=== PATIENT | female | born 1975 | race Caucasian/White ===

== ENCOUNTER 2019-06-13 14:34 | Emergency (ER) | payer OTHER ==
--- NOTE | 2019-06-13 14:47 | ED Physician Documentation ---
PD HPI CHEST PAIN - Stated complaint Stated Complaint: TIGHTNESS IN CHEST - Chief complaint Chief Complaint: Cardiac - History obtained from History obtained from: Patient - History of Present Illness Timing - onset: How many weeks ago (2-3) Timing - onset during: Light activity, Exertion Timing - duration: Hours (it will hurt for periods during the day and then improve. Noted more with movement and upper body use (lifting)) Timing - details: Gradual onset, Intermittant Quality: Aching, Pain Location: Substernal, Right chest Radiation: No: Neck, Back Improved by: Rest Worsened by: Exertion, Inspiration, Movement. No: Palpation Associated symptoms: Shortness of air. No: Nausea, Vomiting, Feeling faint / dizzy, Cough Similar symptoms before: Has not had sx before Recently seen: Not recently seen, Other (had moved from [place] about a month ago, so was doing lifting/packing, but also then drove from [place] to here.) Review of Systems Constitutional: denies: Fever, Chills, Myalgias Nose: denies: Rhinorrhea / runny nose, Congestion Throat: denies: Sore throat Cardiac: reports: Chest pain / pressure. denies: Palpitations, Pedal edema, Calf pain Respiratory: denies: Dyspnea, Cough, Wheezing GI: denies: Abdominal Pain, Nausea, Vomiting, Diarrhea Skin: denies: Rash, Lesions PD PAST MEDICAL HISTORY - Past Medical History Cardiovascular: None Respiratory: None - Present Medications Home Medications: Ambulatory Orders Medication Instructions Recorded Confirmed Ibuprofen [Motrin] 600 mg PO TID PRN #25 tab 06/13/19 dexAMETHasone [Decadron] 4 mg PO DAILY #5 tablet 06/13/19 - Allergies Allergies/Adverse Reactions: Allergies Allergy/AdvReac Type Severity Reaction Status Date / Time erythromycin base Allergy Rash Verified 06/13/19 14:45 Penicillins Allergy Rash Verified 06/13/19 14:45 - Family History Family history: reports: CAD PD ED PE NORMAL - Vitals Vital signs reviewed: Yes - General General: Alert and oriented X 3, No acute distress, Well developed/nourished - HEENT HEENT: Pharynx benign - Neck Neck: Supple, no meningeal sign, No adenopathy - Cardiac Cardiac: RRR, No murmur - Respiratory Respiratory: Clear bilaterally, Other (some chest wall tenderness right parasternal area without crepitance, rash, nor redness. ) - Abdomen Abdomen: Soft, Non tender - Derm Derm: Normal color, Warm and dry - Extremities Extremities: Normal ROM s pain, No edema, No calf tenderness / cord - Neuro Neuro: Alert and oriented X 3, No motor deficit, Normal speech Results - Vitals Vitals: Vital Signs - 24 hr 06/13/19 06/13/19 14:43 16:23 Temperature 36.7 C 36.6 C Heart Rate 73 66 Respiratory 18 18 Rate Blood Pressure 120/67 106/73 O2 Saturation 98 98 Oxygen O2 Source Room air - EKG (time done) 14:49 Rate: Rate (enter#) (68) Rhythm: NSR [place]: Normal Intervals: Normal CA QRS: Normal Ischemia: Normal ST segments. No: ST elevation c/w ischemia, ST depression Compare to prior EKG: Old EKG unavailable - Labs Labs: Laboratory Tests 06/13/19 06/13/19 06/13/19 15:15 15:15 15:15 WBC 6.5 RBC 4.49 Hgb 13.6 Hct 41.9 MCV 93.3 MCH 30.3 MCHC 32.5 RDW 12.6 Plt Count 261 MPV 9.9 Neut # (Auto) 3.8 Lymph # (Auto) 2.0 Rich # (Auto) 0.4 Eos # (Auto) 0.3 Baso # (Auto) 0.0 Absolute Nucleated RBC 0.00 Nucleated RBC % 0.0 D-Dimer Sodium 141 Potassium 4.2 Chloride 108 Carbon Dioxide 26 Anion Gap 7.0 BUN 15 Creatinine 0.8 Estimated GFR (MDRD) 79 L Glucose 109 H Calcium 9.3 Total Bilirubin < 0.2 L AST 13 ALT 16 Alkaline Phosphatase 56 Troponin I High Sens < 2.3 L C-Reactive Protein < 1.0 B-Natriuretic Peptide Total Protein 7.1 Albumin 3.9 Globulin 3.2 Albumin/Globulin Ratio 1.2 Lipase 28 06/13/19 06/13/19 15:15 15:15 WBC RBC Hgb Hct MCV MCH MCHC RDW Plt Count MPV Neut # (Auto) Lymph # (Auto) Rich # (Auto) Eos # (Auto) Baso # (Auto) Absolute Nucleated RBC Nucleated RBC % D-Dimer < 200.0 L Sodium Potassium Chloride Carbon Dioxide Anion Gap BUN Creatinine Estimated GFR (MDRD) Glucose Calcium Total Bilirubin AST ALT Alkaline Phosphatase Troponin I High Sens C-Reactive Protein B-Natriuretic Peptide 44 Total Protein Albumin Globulin Albumin/Globulin Ratio Lipase - Rads (name of study) chest xray Radiology: Prelim report reviewed (no acute process), See rad report PD MEDICAL DECISION MAKING - ED course Complexity details: reviewed results, re-evaluated patient, considered differential (consider ACS, pneumonia, PE, effusion, versus musculoskeletal.), d/w patient Departure - Departure Disposition: Home, Self Care Clinical Impression: Musculoskeletal chest pain Chest pain Qualifiers: Chest pain type: unspecified Qualified Code(s): R07.9 - Chest pain, unspecified Condition: Stable Record reviewed to determine appropriate education?: Yes Instructions: ED Strain Chest Wall Follow-Up: ROB Harman [Provider Group] Prescriptions: dexAMETHasone [Decadron] 4 mg PO DAILY #5 tablet Ibuprofen [Motrin] 600 mg PO TID PRN #25 tab PRN Reason: Pain Comments: There are no signs of more significant cause of the chest pain. The EKG blood tests and x-ray are normal here which exclude processes such as heart attack, heart failure, blood clots, pneumonia, fluid in the lungs. Your symptoms sound musculoskeletal so we will treated with anti-inflammatories as prescribed. To that add Tylenol if needed for pain. Recheck if not improving over the next several days and better by a week. Discharge Date/Time: 06/13/19 16:24
[2019-06-13] MEDS ORDERED: IBUPROFEN 600 MG TABLET PO STA (15:08)
[2019-06-13 15:31] LABS: BASOPHILS % (AUTO) 0.3 %; EOSINOPHILS # (AUTO) 0.3 10^3/uL (0.0-0.7); EOSINOPHILS % (AUTO) 4.1 %; HGB - HEMOGLOBIN 13.6 g/dL (12.0-16.0); LYMPHOCYTES % (AUTO) 31.3 %; MEAN CORPUSCULAR HEMOGLOBIN 30.3 pg (27.0-31.0); MEAN CORPUSCULAR HGB CONC 32.5 g/dL (32.0-36.0); MEAN CORPUSCULAR VOLUME 93.3 fL (81.0-99.0); MEAN PLATELET VOLUME 9.9 fL (7.9-10.8); MONOCYTES # (AUTO) 0.4 10^3/uL (0.0-1.0); MONOCYTES % (AUTO) 6.3 %; NEUTROPHILS # (AUTO) 3.8 10^3/uL (1.5-6.6); NEUTROPHILS % (AUTO) 57.7 %; PLT - PLATELET COUNT 261 10^3/uL (130-450); RED BLOOD COUNT 4.49 10^6/uL (4.20-5.40); RED CELL DISTRIBUTION WIDTH 12.6 % (12.0-15.0); WHITE BLOOD COUNT 6.5 x10^3/uL (4.8-10.8)
[2019-06-13 15:47] LABS: ALBUMIN 3.9 g/dL (3.2-5.5); ALBUMIN/GLOBULIN RATIO 1.2 (1.0-2.2); ALKALINE PHOSPHATASE 56 IU/L (42-121); ALT ALANINE AMINOTRANSFERASE 16 IU/L (10-60); AST ASPARTATE AMINOTRANSFERASE 13 IU/L (10-42); BILIRUBIN,TOTAL < 0.2 mg/dL (0.2-1.0); BUN - BLOOD UREA NITROGEN 15 mg/dL (6-20); CALCIUM 9.3 mg/dL (8.5-10.3); CARBON DIOXIDE - CO2 26 mmol/L (21-32); CHLORIDE 108 mmol/L (101-111); CREATININE 0.8 mg/dL (0.4-1.0); CRP - C-REACTIVE PROTEIN < 1.0 mg/dL (0-1.0); GFR - MDRD 79 (>89); GLUCOSE 109 mg/dL (70-100); LIPASE 28 U/L (22-51); SODIUM 141 mmol/L (135-145); TOTAL PROTEIN 7.1 g/dL (6.7-8.2)
[2019-06-13 16:24] VITALS: BP 106/73
--- NOTE | 2019-06-13 16:28 | XRAY Report ---
Reason: dyspnea/ chest pain left Procedure Date: 06/13/2019 Accession Number: [id number] / [id number] Procedure: XR - Chest 2 View X-Ray CPT Code: 92919 Final Report FULL RESULT: EXAM: CHEST RADIOGRAPHY EXAM DATE: 06/13/2019 03:28 PM. CLINICAL HISTORY: Dyspnea, left-sided chest pain. COMPARISON: None. TECHNIQUE: 2 views. FINDINGS: Lungs/Pleura: No focal opacities. No pleural effusion or pneumothorax. Mediastinum: Cardiomediastinal silhouette is within normal limits. Pulmonary vasculature is unremarkable. Other: None. IMPRESSION: No acute cardiopulmonary abnormality. [facility]
== END 2019-06-13 16:24 | disposition home or self-care (01) ==
LOC: ED 14:34
DX: R07.89 Other chest pain (principal)
CPT/HCPCS: 36415; 71046; 80053; 83690; 83880; 84484; 85025; 85379; 86140; 93005; 99283; 99284; A9270